=== PATIENT | female | born 1985 | race Caucasian/White ===

== ENCOUNTER 2017-12-08 10:22 | Emergency (ER) | payer OTHER ==
[~2017-12-08] VITALS: Ht 157.5 cm; Wt 93.9 kg
[~2017-12-08 10:22] MED LIST: ACYCLOVIR 200200 MG PO; AMOXICILLIN 50500 MG PO; BACTRIM DS TAB1 EACH PO; BENTYL20 MG PO; CEPHALEXIN 500500 M2 PO; CIPRO250 M1 PO; CIPRO500 MG PO; HYDROCODONE-AP1 EAC6 PO; IBUPROFEN; IBUPROFEN 800800 M1 PO; NAPROSYN500 MG PO; NOHOMEMEDICATIONS; NORCO 5-325 TA1 EACH PO; ONDANSETRON HCL4 M2 PO; PAXIL10 MG; PENICILLIN V P500 MG PO; PENICILLIN VK500 M1 PO; PERCOCET 5-3251 EACH PO; PHENAZOPYRIDIN200 M2 PO; PYRIDIUM200 M1 PO; TRAMADOL 50 MG50 MG PO; ULTRAM 50MG TAB50 MG PO; ZOFRAN4 MG PO
[2017-12-08] MEDS ORDERED: TYLENOL EXTRA500 MG PO (10:29)
[2017-12-08] MEDS ORDERED: AMOXIL 875 MG875 M1 PO (10:35)
[2017-12-08 10:42] VITALS: BP 157/74
== END 2017-12-08 10:43 | disposition home or self-care (01) ==
LOC: M.ERS 10:22
DX: O99.512 Diseases of the respiratory system complicating pregnancy, second trimester (principal); J30.9 Allergic rhinitis, unspecified; J02.9 Acute pharyngitis, unspecified; Z87.440 Personal history of urinary (tract) infections; Z3A.16 16 weeks gestation of pregnancy

== ENCOUNTER 2017-12-12 14:11 | Emergency (ER) | payer OTHER ==
[~2017-12-12] VITALS: Ht 157.5 cm; Wt 93.9 kg
[~2017-12-12 14:11] MED LIST changes: +AMOXIL 875 MG875 M1 PO; +TYLENOL EXTRA500 MG PO
[2017-12-12 14:47] LABS: ABSOLUTE BASOPHILS 0.1 thou/uL (0.0-0.2); ABSOLUTE EOSINOPHILS 0.2 thou/uL (0.0-0.7); ABSOLUTE LYMPHOCYTES 1.9 thou/uL (0.8-5.3); ABSOLUTE MONOCYTES 0.8 thou/uL (0.0-1.2); ABSOLUTE NEUTROPHILS 10.5 thou/uL (1.6-8.1); BASOPHILS 0.9 %; EOSINOPHILS 1.1 %; HEMATOCRIT 37.5 % (37.0-47.0); HEMOGLOBIN 12.4 gm/dL (12.0-15.0); LYMPHOCYTES 14.3 %; MCH 29.3 pg (26.0-34.0); MCHC 33.1 g/dL (28.0-37.0); MCV 88.4 fL (80.0-100.0); MONOCYTES 5.8 %; NUCLEATED RBCS 0 /100WBC; PLATELET COUNT* 353 thou/uL (150-400); POLYS 77.9 %; RBC 4.25 mil/uL (4.20-5.00); RDW-CV 13.8 % (10.5-14.5); WBC 13.4 thou/uL (4.0-11.0)
[2017-12-12 14:59] LABS: CALCIUM 8.6 mg/dL (8.5-10.1); CREATININE 0.7 mg/dL (0.6-1.3); POTASSIUM 3.3 mmol/L (3.5-5.1)
[2017-12-12 15:03] LABS: ALBUMIN 2.7 g/dL (3.4-5.0); TOTAL BILIRUBIN 0.3 mg/dL (<0.1-1.0); TOTAL PROTEIN 7.6 g/dL (6.4-8.2)
[2017-12-12 15:53] LABS: URINE BILIRUBIN NEGATIVE (Negative); URINE BLOOD 2+ (Negative); URINE CLARITY CLEAR; URINE COLOR YELLOW; URINE GLUCOSE-RANDOM NEGATIVE (Negative); URINE KETONES NEGATIVE (Negative); URINE LEUKOCYTES-REFLEX NEGATIVE (Negative); URINE NITRITE-REFLEX NEGATIVE (Negative); URINE PROTEIN 1+ (Negative); URINE SPECIFIC GRAVITY 1.025 (1.005-1.030)
[2017-12-12 15:59] LABS: SQUAMOUS >10 Many /LPF (0-3)
[2017-12-12 16:01] LABS: MUCUS 0-3 Light strn/LPF (None Seen)
[2017-12-12 16:02] LABS: CASTS None Seen /LPF (None Seen); CRYSTALS None Seen /LPF (None Seen); URINE RBC 3-10 Few /HPF (0-2); URINE WBC-REFLEX 0-5 Rare /HPF (0-5)
[2017-12-12 16:29] VITALS: BP 126/88
== END 2017-12-12 16:30 | disposition home or self-care (01) ==
LOC: M.ERS 14:11
PROVIDERS: Physician Assistant
DX: O21.8 Other vomiting complicating pregnancy (principal); Z3A.17 17 weeks gestation of pregnancy

== ENCOUNTER 2019-02-13 15:58 | Emergency (ER) | payer OTHER, MEDICAID ==
[~2019-02-13] VITALS: Ht 154.9 cm; Wt 95.3 kg
[2019-02-13 16:14] LABS: URINE BILIRUBIN NEGATIVE (Negative); URINE BLOOD 2+ (Negative); URINE CLARITY CLEAR; URINE COLOR YELLOW; URINE GLUCOSE-RANDOM NEGATIVE (Negative); URINE KETONES NEGATIVE (Negative); URINE LEUKOCYTES-REFLEX TRACE (Negative); URINE NITRITE-REFLEX NEGATIVE (Negative); URINE PROTEIN TRACE (Negative); URINE SPECIFIC GRAVITY 1.015 (1.005-1.030); URINE UROBILINOGEN 0.2 E.U./dl (0.2-1.0)
[2019-02-13 16:43] LABS: BACTERIA-REFLEX 1-9 Few /HPF (None Seen); MUCUS None Seen strn/LPF (None Seen); SQUAMOUS >10 Many /LPF (0-3)
[2019-02-13 16:44] LABS: CASTS None Seen /LPF (None Seen); CRYSTALS None Seen /LPF (None Seen); URINE RBC 3-10 Few /HPF (0-2)
[2019-02-13] MEDS ORDERED: CEFDINIR300 MG PO (17:03)
[2019-02-13 17:20] VITALS: BP 131/89
== END 2019-02-13 17:21 | disposition home or self-care (01) ==
LOC: M.ERS 15:58
PROVIDERS: Nurse Practitioner Family
DX: N39.0 Urinary tract infection, site not specified (principal); Z87.440 Personal history of urinary (tract) infections

== ENCOUNTER 2019-07-21 16:32 | Emergency (ER) | payer OTHER, MEDICAID ==
[~2019-07-21] VITALS: Ht 157.5 cm; Wt 81.7 kg
[~2019-07-21 16:32] MED LIST changes: +CEFDINIR300 MG PO
[2019-07-21 16:36] VITALS: BP 143/114
[2019-07-21] MEDS ORDERED: BIRTH CONTROL (16:42)
[2019-07-21 16:47] LABS: URINE BILIRUBIN NEGATIVE (Negative); URINE BLOOD 2+ (Negative); URINE CLARITY CLEAR; URINE COLOR YELLOW; URINE GLUCOSE-RANDOM NEGATIVE (Negative); URINE KETONES NEGATIVE (Negative); URINE LEUKOCYTES-REFLEX NEGATIVE (Negative); URINE NITRITE-REFLEX NEGATIVE (Negative); URINE PROTEIN NEGATIVE (Negative); URINE SPECIFIC GRAVITY 1.025 (1.005-1.030); URINE UROBILINOGEN 0.2 E.U./dl (0.2-1.0)
[2019-07-21 16:59] LABS: SQUAMOUS >10 Many /LPF (0-3)
[2019-07-21 17:00] LABS: CASTS None Seen /LPF (None Seen); CRYSTALS None Seen /LPF (None Seen); MUCUS 0-3 Light strn/LPF (None Seen); URINE RBC 3-10 Few /HPF (0-2); URINE WBC-REFLEX 6-15 Few /HPF (0-5)
[2019-07-21] MEDS ORDERED: KEFLEX500 M1 PO (17:01)
== END 2019-07-21 17:06 | disposition home or self-care (01) ==
LOC: M.ERS 16:32
PROVIDERS: Emergency Medicine Emergency Medical Services
DX: N39.0 Urinary tract infection, site not specified (principal)

== ENCOUNTER 2020-01-20 12:27 | Emergency (ER) | payer OTHER, MEDICAID ==
[~2020-01-20] VITALS: Ht 154.9 cm; Wt 90.7 kg
[~2020-01-20 12:27] MED LIST changes: +BIRTH CONTROL; +KEFLEX500 M1 PO
[2020-01-20] MEDS ORDERED: PROBIOTIC1 EAC7 PO (12:34)
[2020-01-20] MEDS ORDERED: HYDROXYZINE HCL25 M2 PO (12:35)
[2020-01-20 13:00] LABS: ABSOLUTE BASOPHILS 0.1 thou/uL (0.0-0.2); ABSOLUTE EOSINOPHILS 0.1 thou/uL (0.0-0.7); ABSOLUTE LYMPHOCYTES 2.7 thou/uL (0.8-5.3); ABSOLUTE MONOCYTES 0.6 thou/uL (0.0-1.2); ABSOLUTE NEUTROPHILS 10.2 thou/uL (1.6-8.1); HEMATOCRIT 43.2 % (37.0-47.0); HEMOGLOBIN 14.6 gm/dL (12.0-15.0); LYMPHOCYTES 19.4 %; MCH 30.4 pg (26.0-34.0); MCHC 33.8 g/dL (28.0-37.0); MCV 90.1 fL (80.0-100.0); MONOCYTES 4.2 %; MPV 7.8 fl. (7.2-11.1); NUCLEATED RBCS 0 /100WBC; PLATELET COUNT* 374 thou/uL (150-400); POLYS 74.4 %; RDW-CV 13.7 % (10.5-14.5); WBC 13.7 thou/uL (4.0-11.0)
[2020-01-20 13:01] LABS: URINE BILIRUBIN NEGATIVE (Negative); URINE BLOOD 1+ (Negative); URINE CLARITY CLEAR; URINE COLOR YELLOW; URINE GLUCOSE-RANDOM NEGATIVE (Negative); URINE KETONES NEGATIVE (Negative); URINE LEUKOCYTES-REFLEX TRACE (Negative); URINE NITRITE-REFLEX NEGATIVE (Negative); URINE PROTEIN NEGATIVE (Negative); URINE SPECIFIC GRAVITY <= 1.005 (1.005-1.030); URINE UROBILINOGEN 0.2 E.U./dl (0.2-1.0)
[2020-01-20 13:14] LABS: CALCIUM 8.9 mg/dL (8.5-10.1); POTASSIUM 3.8 mmol/L (3.5-5.1)
[2020-01-20 13:17] LABS: BACTERIA-REFLEX 1-9 Few /HPF (None Seen); CASTS None Seen /LPF (None Seen); CRYSTALS None Seen /LPF (None Seen); MUCUS 0-3 Light strn/LPF (None Seen); SQUAMOUS 0-3 Few /LPF (0-3); URINE RBC 3-10 Few /HPF (0-2); URINE WBC-REFLEX 0-5 Rare /HPF (0-5)
[2020-01-20 13:18] LABS: ALBUMIN 3.5 g/dL (3.4-5.0); TOTAL BILIRUBIN 0.4 mg/dL (<0.1-1.0); TOTAL PROTEIN 7.7 g/dL (6.4-8.2)
[2020-01-20] MEDS ORDERED: KEFLEX500 M1 PO (13:29)
[2020-01-20 13:44] VITALS: BP 132/76
== END 2020-01-20 13:45 | disposition home or self-care (01) ==
LOC: M.ERS 12:27
PROVIDERS: Physician Assistant
DX: N39.0 Urinary tract infection, site not specified (principal)

== ENCOUNTER 2020-05-14 11:25 | Emergency (ER) | payer OTHER, MEDICAID ==
[~2020-05-14] VITALS: Ht 154.9 cm; Wt 95.3 kg
[~2020-05-14 11:25] MED LIST changes: +HYDROXYZINE HCL25 M2 PO; +PROBIOTIC1 EAC7 PO
[2020-05-14] MEDS ORDERED: HYDROXYZINE HCL25 M2 PO (11:41)
[2020-05-14 12:09] LABS: HEMATOCRIT 41.1 % (37.0-47.0); HEMOGLOBIN 13.5 gm/dL (12.0-15.0); MCH 29.7 pg (26.0-34.0); MCHC 32.9 g/dL (28.0-37.0); MCV 90.2 fL (80.0-100.0); MPV 7.4 fl. (7.2-11.1); RBC 4.56 mil/uL (4.20-5.00); RDW-CV 13.8 % (10.5-14.5); WBC 11.4 thou/uL (4.0-11.0)
[2020-05-14 12:21] LABS: CALCIUM 8.8 mg/dL (8.5-10.1); CREATININE 0.9 mg/dL (0.6-1.3); POTASSIUM 4.1 mmol/L (3.5-5.1)
[2020-05-14 12:25] LABS: ALBUMIN 3.5 g/dL (3.4-5.0); TOTAL BILIRUBIN 0.3 mg/dL (<0.1-1.0); TOTAL PROTEIN 7.9 g/dL (6.4-8.2)
[2020-05-14 12:27] LABS: PROTIME 10.3 Seconds (9.20-11.50)
[2020-05-14 12:39] LABS: URINE BILIRUBIN NEGATIVE (Negative); URINE BLOOD 2+ (Negative); URINE CLARITY CLEAR; URINE COLOR YELLOW; URINE GLUCOSE-RANDOM NEGATIVE (Negative); URINE KETONES NEGATIVE (Negative); URINE LEUKOCYTES-REFLEX NEGATIVE (Negative); URINE NITRITE-REFLEX NEGATIVE (Negative); URINE PROTEIN NEGATIVE (Negative); URINE SPECIFIC GRAVITY 1.015 (1.005-1.030); URINE UROBILINOGEN 0.2 E.U./dl (0.2-1.0)
[2020-05-14 12:46] LABS: BACTERIA-REFLEX 1-9 Few /HPF (None Seen); CRYSTALS None Seen /LPF (None Seen); MUCUS None Seen strn/LPF (None Seen); SQUAMOUS 4-10 Moderate /LPF (0-3); URINE RBC 3-10 Few /HPF (0-2); URINE WBC-REFLEX 0-5 Rare /HPF (0-5)
[2020-05-14] MEDS ORDERED: ALPRAZOLAM 0.0.25 MG PO (13:44)
[2020-05-14 13:53] VITALS: BP 124/72
--- NOTE | 2020-05-15 11:25 | EKG ---
[place] [address] ELECTROCARDIOGRAM REPORT Name: ELSA TATUM Room: [facility]#: [id number] Admission: 05/14/20 Attend Phys: Discharge: 05/14/20 Date of : 81 Date of Service: 05/14/20 1133 Report #: [id number] THIS REPORT FOR: //name// [facility] ED Test Date: 2020-05-14 Test Time: 11:33:13 Pat Name: ELSA TATUM Department: Room: Gender: F [employer]inist: [place] : 1985 Requested By: Jasmine Thompson Order Number: [id number] MD: Maulik Romero Measurements Intervals [place] Rate: 92 P: 50 VA: 123 QRS: 6 QRSD: 89 T: 1 QT: 345 QTc: 427 Interpretive Statements Sinus rhythm No previous ECG available for comparison Electronically Signed On 05-15-2020 11:25:30 [employer] by Maulik Romero [email or web address] <ELECTRONICALLY SIGNED> By: Maulik Romero MD, [facility] 05/15/20 1125 1133 1133 Maulik Romero MD, FACC /EPI
== END 2020-05-14 13:54 | disposition home or self-care (01) ==
LOC: M.ERS 11:25
PROVIDERS: Personal Emergency Response Attendant
DX: F41.9 Anxiety disorder, unspecified (principal); Z87.440 Personal history of urinary (tract) infections

== ENCOUNTER 2020-07-10 18:09 | Emergency (ER) | payer OTHER, MEDICAID ==
[~2020-07-10] VITALS: Ht 154.9 cm; Wt 90.7 kg
[~2020-07-10 18:09] MED LIST changes: +ALPRAZOLAM 0.0.25 MG PO
[2020-07-10 18:28] LABS: URINE COLOR ORANGE
[2020-07-10 18:29] LABS: URINE CLARITY CLEAR; URINE SPECIFIC GRAVITY 1.024 (1.005-1.030)
[2020-07-10 18:31] LABS: SQUAMOUS >10 Many /LPF (0-3)
[2020-07-10 18:32] LABS: CASTS None Seen /LPF (None Seen); CRYSTALS None Seen /LPF (None Seen); MUCUS None Seen strn/LPF (None Seen); URINE RBC 3-10 Few /HPF (0-2)
[2020-07-10] MEDS ORDERED: BACTRIM DS TAB1 EACH PO (18:56)
[2020-07-10 19:45] VITALS: BP 145/85
[2020-07-13] MEDS ORDERED: PERIOGARD473 ML SWISH&SPIT (14:13)
[2020-07-13] MEDS ORDERED: AMOXICILLIN 50500 M1 PO (14:13)
[2020-07-13] MEDS ORDERED: LIDOCAINE VISC100 ML SWISH&SPIT (14:13)
[2020-07-13] MEDS ORDERED: DIFLUCAN150 MG PO (14:28)
== END 2020-07-10 19:45 | disposition home or self-care (01) ==
LOC: M.ERS 18:09
PROVIDERS: Nurse Practitioner Family
DX: N39.0 Urinary tract infection, site not specified (principal)

== ENCOUNTER 2020-10-17 07:17 | Emergency (ER) | payer OTHER, MEDICAID ==
[~2020-10-17] VITALS: Ht 154.9 cm; Wt 81.7 kg
[~2020-10-17 07:17] MED LIST changes: +AMOXICILLIN 50500 M1 PO; +DIFLUCAN150 MG PO; +LIDOCAINE VISC100 ML SWISH&SPIT; +PERIOGARD473 ML SWISH&SPIT
[2020-10-17 07:25] VITALS: BP 167/117
[2020-10-17] MEDS ORDERED: HYDROCODON-ACE1 EAC7 PO (07:48)
[2020-10-17] MEDS ORDERED: PENICILLIN VK500 M1 PO (07:48)
== END 2020-10-17 08:00 | disposition home or self-care (01) ==
LOC: M.ERS 07:17
DX: F41.9 Anxiety disorder, unspecified (principal); K04.7 Periapical abscess without sinus

== ENCOUNTER 2020-12-08 20:17 | Emergency (ER) | payer OTHER, MEDICAID ==
[~2020-12-08] VITALS: Ht 157.5 cm; Wt 102.1 kg
[~2020-12-08 20:17] MED LIST changes: +HYDROCODON-ACE1 EAC7 PO
[2020-12-08] MEDS ORDERED: TOPROL XL25 MG PO (20:31)
[2020-12-08] MEDS ORDERED: LEXAPRO 10 MG T10 M2 PO (20:31)
[2020-12-08] MEDS ORDERED: HYDROXYZINE HCL50 MG PO (20:32)
[2020-12-08 21:15] LABS: ABSOLUTE NEUTROPHILS 6.6 thou/uL (1.6-8.1); HEMOGLOBIN 12.8 gm/dL (12.0-15.0); MPV 8.3 fl. (7.2-11.1)
[2020-12-08 21:17] LABS: ABSOLUTE BASOPHILS 0.2 thou/uL (0.0-0.2); ABSOLUTE EOSINOPHILS 0.1 thou/uL (0.0-0.7); ABSOLUTE LYMPHOCYTES 3.7 thou/uL (0.8-5.3); ABSOLUTE MONOCYTES 0.6 thou/uL (0.0-1.2); BASOPHILS 1.5 %; EOSINOPHILS 1.3 %; HEMATOCRIT 38.7 % (37.0-47.0); LYMPHOCYTES 32.7 %; MCH 29.2 pg (26.0-34.0); MCHC 33.2 g/dL (28.0-37.0); MONOCYTES 5.3 %; NUCLEATED RBCS 0 /100WBC; PLATELET COUNT* 411 thou/uL (150-400); POLYS 59.2 %; RBC 4.39 mil/uL (4.20-5.00); RDW-CV 13.1 % (10.5-14.5); WBC 11.2 thou/uL (4.0-11.0)
[2020-12-08 21:22] LABS: CALCIUM 8.5 mg/dL (8.5-10.1); CREATININE 0.8 mg/dL (0.6-1.3); POTASSIUM 3.7 mmol/L (3.5-5.1)
[2020-12-08 21:26] LABS: ALBUMIN 3.5 g/dL (3.4-5.0); TOTAL BILIRUBIN 0.2 mg/dL (<0.1-1.0); TOTAL PROTEIN 7.3 g/dL (6.4-8.2)
[2020-12-08 22:20] LABS: URINE BILIRUBIN NEGATIVE (Negative); URINE BLOOD 2+ (Negative); URINE CLARITY CLEAR; URINE COLOR YELLOW; URINE GLUCOSE-RANDOM NEGATIVE (Negative); URINE KETONES NEGATIVE (Negative); URINE LEUKOCYTES-REFLEX NEGATIVE (Negative); URINE NITRITE-REFLEX NEGATIVE (Negative); URINE PROTEIN NEGATIVE (Negative); URINE SPECIFIC GRAVITY 1.025 (1.005-1.030); URINE UROBILINOGEN 0.2 E.U./dl (0.2-1.0)
[2020-12-08 22:33] LABS: BACTERIA-REFLEX >30 Many /HPF (None Seen); CASTS None Seen /LPF (None Seen); CRYSTALS None Seen /LPF (None Seen); MUCUS 4-6 Moderate strn/LPF (None Seen); SQUAMOUS 4-10 Moderate /LPF (0-3); URINE RBC 3-10 Few /HPF (0-2); URINE WBC-REFLEX None Seen /HPF (0-5)
--- NOTE | 2020-12-09 11:00 | EKG ---
[place] [address] ELECTROCARDIOGRAM REPORT Name: ELSA TATUM Room: [facility]#: [id number] Admission: 12/08/20 Attend Phys: Discharge: 12/08/20 Date of : 81 Date of Service: 12/08/202022 Report #: [id number] THIS REPORT FOR: //name// [facility] ED Test Date: 2020-12-08 Test Time: 20:23:13 Pat Name: ELSA TATUM Department: Room: Gender: F [employer]: [place] : 1985 Requested By: Jasmine Thompson Order Number: [id number] MD: Maulik Romero Measurements Intervals [place] Rate: 83 P: 61 HI: 139 QRS: 10 QRSD: 101 T: -18 QT: 362 QTc: 426 Interpretive Statements Sinus rhythm Borderline repolarization abnormality Compared to ECG 05/14/2020 11:33:13 No significant changes Electronically Signed On 12-09-2020 11:00:50 CDT by Maulik Romero [email or web address] <ELECTRONICALLY SIGNED> By: Maulik Romero MD, [facility] 12/09/20 1100 22 22 Maulik Romero MD, [facility] /EPI
== END 2020-12-08 22:43 | disposition home or self-care (01) ==
LOC: M.ERS 20:17
PROVIDERS: Personal Emergency Response Attendant
DX: F41.9 Anxiety disorder, unspecified (principal); R07.89 Other chest pain; E78.5 Hyperlipidemia, unspecified; Z87.440 Personal history of urinary (tract) infections; Z79.899 Other long term (current) drug therapy